=== PATIENT | male | born 1990 | race Asian ===

== ENCOUNTER 2017-07-28 19:19 | Observation (INO) | payer OTHER ==
[~2017-07-28] VITALS: Ht 180.3 cm; Wt 59.4 kg
[~2017-07-28 19:19] MED LIST: FLUT9.9S NOSTRIL; SULF1TAB7 PO
[2017-07-28 19:32] VITALS: BP 118/76; PULSE 82; RESP 17; O2SAT 99
--- NOTE | 2017-07-28 19:42 | ED.REPORT ---
HPI-General Illness Date of Service Jul 28, 2017 ED Provider: Jaylen Locke MD Pt is a 27 year old male with a history of recurrent episodes of epistaxis and thrombocytopenia/pancytopenia, previously seen by Dr. Marquez who presents to the ED complaining of a nosebleed. His nose began bleeding thirty minutes ago and has continued despite the pt plugging his nose with paper. The pt does not take any blood thinners. He has experienced similar symptoms previously. He was apparently supposed to have a CBC done last month though this was never completed. Nursing Notes Stated Complaint: NOSE WONT STOP BLEEDING, LOW PLATELET COUNT Chief Complaint: General Complaint Nursing Notes Reviewed: Yes Allergies: Coded Allergies: Penicillins (Verified Allergy, Severe, sweating and face turns pale, ) Scheduled Fluticasone Propionate (Flonase Allergy Relief) 50 Mcg/Actuation [place].susp 1 SPRAY NOSTRIL BID Sulfamethoxazole/Trimeth 800-160 mg (Bactrim DS) 1 Each Tablet 1 TABLET PO BID General Time Seen by MD: 19:39 Chief Complaint Other (Epistaxis) Hx Obtained From: Patient, Other family... Arrived By: Walk-in Sudden in Onset?: Yes Onset Occurred: 16 - 30 minutes ago Symptom Duration: Since onset Recent Healthcare: Recent doctor visit Similar Sx Previous: Yes Past Medical History Past Medical History Thrombocytopenia Epistaxis Past Surgical History L neck biopsy Smoking History Never Smoker Social History Alcohol Use: Denies alcohol use Ambulatory Status Independent Review of Systems Full Review of Systems Ears / Nose / Throat: Reports: Nose bleeding Respiratory: Denies: Non-productive cough, Shortness of breath Cardiovascular: Denies: Chest pain GI: Denies: Abdominal pain, Nausea, Vomiting Musculoskeletal: Denies: Back pain, Neck pain Skin: Denies Rash Complete sys rev & neg: except as marked. Physical Exam Vital Signs Vital Signs Date Time Temp Pulse Resp B/P Pulse Ox O2 Delivery O2 Flow Rate FiO2 07/28/17 19:32 36.4 82 17 118/76 99 Room Air Initial VS: Reviewed General/Constitutional: Awake, Alert Head / Eyes: Atraumatic, Normocephalic, PERRL, EOMI ENT: Atraumatic, Airway patent, Mucous membranes moist blood present in right nares, no active bleeding oropharynx normal Neck: Atraumatic, Supple, Full range of motion Respiratory / Chest: Atraumatic, Breath sounds NL, Breath sounds = bilat, No respiratory distress Cardiovascular: Heart rate NL, Regular rhythm, Heart sounds NL Abdomen: Atraumatic, Soft, Non-tender Back: Atraumatic, Full range of motion Upper Extremities Upper Extremity / MS: Atraumatic, Full range of motion Lower Extremity / Pelvis / MS: Atraumatic, Full range of motion Skin: Atraumatic, Color NL, No rash, Warm, Dry Neurologic: Oriented X3, Speech NL, No motor deficits, No sensory deficits Psychiatric: Affect NL, Mood NL Interpretation & Diagnostics Lab Results Interpretation Result Diagram: 07/28/172026 Test 07/28/17 20:27 07/28/17 20:28 White Blood Count 5.9th/mm3 (3.8-10.1) Red Blood Count 5.02mil/mm3 (4.40-5.80) Hemoglobin 14.1g/dL (13.8-17.2) Hematocrit 42.0% (41.0-50.0) Mean Corpuscular Volume 84fL (81-100) Mean Corpuscular Hemoglobin 28.1pg (27.0-35.0) Mean Corpuscular Hemoglobin Concent 33.6% (32.0-37.0) Red Cell Distribution Width 15.4% (12.3-15.4) Platelet Count 17bil/L (150-400) Neutrophils (%) (Auto) 79% (40-74) Lymphocytes (%) (Auto) 15% (14-46) Monocytes (%) (Auto) 5% (4-12) Eosinophils (%) (Auto) 1% (0-5) Basophils (%) (Auto) 0% (0-3) Hold Ford Top Tube Received (Received) Re-Eval/Medical Decision Med Decision/Clinical Course Pt is a 27 year old male with a history of recurrent episodes of epistaxis and thrombocytopenia/pancytopenia, previously seen by Dr. Marquez who presents to the ED complaining of a nosebleed. His nose began bleeding thirty minutes ago and has continued despite the pt plugging his nose with paper. The pt does not take any blood thinners. He has experienced similar symptoms previously. He was apparently supposed to have a CBC done last month though this was never completed. Here in the emergency department the patient was afebrile with stable vital signs. Also able to stop his nosebleed by applying firm pressure. Lab for studies were notable as below: CBC unremarkable except platelet count of 17 On 03/12/2017, platelet count was 90 Presentation and workup today was discussed with Dr. Carter hematology oncology. Given that acute drop in his platelets and active bleeding was felt that he should be transfused 2 units of platelets. Patient will be admitted to the medicine service with ongoing transfusion and plan for further evaluation by hematology oncology in the morning. The cause of the patient's pancytopenia remains unclear enterovirus further workup. Patient was discussed with admitting hospitalist and transferred in stable condition. Source of Hx: Old records Time of Eval: 21:17 Patient Status: Condition improved Re-Evaluation/Progress Note: Pt rechecked and lab results are discussed. The diagnosis and plan for admission are discussed. The pt understands and agrees with the plan. All questions are addressed at this time. Consultation #1: Referral / Consult Name: Clyde Lewis MD Consulted With: Collections Clerk Call Returned at: 21:26 Assembly Stock Supervisor: Agrees with eval, Agrees with plan Note: Consulted with Dr. Lewis, hematology, regarding pt's case. Dr. Lewis recommends platelet transfusion and admission. Consultation #2: Referral / Consult Name: Willie Ramos MD Consulted With: Hospitalist Call Returned at: 21:57 Assembly Stock Supervisor: Agrees with eval, Agrees with plan, Accepts admit Note: Spoke with Dr. Ramos, hospitalist, regarding pt's case. Dr. Ramos agrees with the evaluation and agrees to admit the pt. Counseled Regarding: Diagnosis, Lab results, Need for admission Discharge & Departure Primary Impression: Epistaxis Additional Impression: Thrombocytopenia Disposition: ADMITTED TO HOSPITAL Discharge Condition All VS Reviewed: Yes Condition: Stable Referrals: Mt Malik MD [facility] Crit Care Except Billable Proc Time Spent: 75-104 minutes Services Performed: Patient management by me, Time spent at bedside, Reviewing test results, Discussing patient care, Documentation in record, Time with fam/ surrogate Critical Care Notes: Management of severe thrombocytopenia and active bleeding, transfusion of platelets, discussion with hematology/oncology and other consultants. Scribe Attestation Portions of this note were transcribed by Jim Gonzalez. I, Dr. Locke personally performed the history, physical exam and medical decision-making; I reviewed and confirmed the accuracy of the information in the transcribed note. copies to: Mt Malik MD; [facility] Jaylen Locke MD Jul 28, 2017 19:42 JIM GONZALEZ Jul 28, 2017 19:57
[2017-07-28 20:56] LABS: Mean Corpuscular Hemoglobin 28.1 pg (27.0-35.0); Mean Corpuscular Volume 84 fL (81-100)
[2017-07-28 20:59] LABS: BASOPHILS % (AUTO) 0 % (0-3); EOSINOPHILS % (AUTO) 1 % (0-5); MONOCYTES % (AUTO) 5 % (4-12); NEUTROPHILS % (AUTO) 79 % (40-74); Platelet Count 17 bil/L (150-400)
[2017-07-28] MEDS ORDERED: 0.9% Sodium Chloride 250 ML IV STA (21:31)
[2017-07-28] MEDS ORDERED: Alum-Mag Hydrox-Simeth 30 mL Suspension PO PRN ×2 (21:35→22:30)
[2017-07-28] MEDS ORDERED: Ondansetron 2 mg/mL 2 mL Inj IVPUSH PRN ×2 (21:35→22:30)
[2017-07-28] MEDS ORDERED: Polyethylene Glycol (PEG) 17 Gm Powder PO PRN (22:30)
--- NOTE | 2017-07-28 22:44 | PCM.HPMED ---
Subjective Date of Service Jul 28, 2017 Primary Provider: Admitting Physician: Willie Ramos MD Primary Care Physician: Nopwalt Attending Physician: Willie Ramos MD Admit Status: From the Emergency Department Chief Complaint: Nosebleed History of Present Illness: Kourtney Bhardwaj is a 27 -year-old male with a past medical history significant for thrombocytopenia and recurrent nosebleeds presented to the ED for a nosebleed that has been going on for 30 minutes. He has attempted to pack his nose with tissue but it has not staunched the flow. He denies any fever/chills, headache, vision changes, feeling of fatigue or easy bruising. He also denies any overt B symptoms. He has undergone a lengthy work up with Dr. Marquez, at [facility], and his doctor in [place] for his enlarged lymph nodes and thrombocytopenia, all of which has come back negative. He takes DS Bactrim on MWF for prophylaxis but has not had any opportunistic infection. The above history was a combination of records review and utilizing a Mandarin environmental engineer. Review of Systems: Comprehensive review of systems was conducted with the patient and found to be negative except as noted above in HPI. Allergies Coded Allergies: Penicillins (Verified Allergy, Severe, sweating and face turns pale, ) Home Medications Scheduled Fluticasone Propionate (Flonase Allergy Relief) 50 Mcg/Actuation [place].susp 1 SPRAY NOSTRIL BID Sulfamethoxazole/Trimeth 800-160 mg (Bactrim DS) 1 Each Tablet 1 TABLET PO BID - ON MWF only PMH Thrombocytopenia Recurrent epistaxis Surgical History Left neck lymph node biopsy Family History Denies Social History Hx Alcohol Use: No Hx Substance Use: No Hx Tobacco Use: No Smoking Status: Never Smoker Living Arrangement: with Family Exam Vital Signs Vital Sign - Last Date Time Temp Pulse Resp B/P Pulse Ox O2 Delivery O2 Flow Rate FiO2 07/28/17 19:32 36.4 82 17 118/76 99 Room Air Exam General: Age appropriate [place] male in no acute distress, well-developed, well -nourished, appropriately interactive. Speaks in Mandarin only. HEENT: Normocephalic, atraumatic. External ears without defect. Pupils equal, round, and reactive to light and accommodation. Membranes pink and moist. Dried blood in the nares but no active bleeding. Neck: Supple with full range of motion. No jugular venous distension. He does have diffuse cervical lymphadeonpathy which makes his neck quit enlarged. Cardiovascular: Regular rate and rhythm with no murmurs, rubs, or gallops appreciated Pulmonary: Clear to auscultation bilaterally with no crackles, wheezes, or rhonchi. Normal respiratory effort with no use of accessory muscles. Abdomen: Bowel tones present. Soft, nontender, nondistended. No hepatosplenomegaly or masses appreciated. Extremities: No clubbing, cyanosis, edema appreciated. Skin: Normal temperature, turgor, and texture; no rash, ulcers, or subcutaneous nodules appreciated. Neurological: Cranial nerves grossly intact. Normal muscle strength, tone, and bulk. Reflexes, coordination, and sensory function within normal limits. No known gait impairment. Psychiatric: Normal mood and affect. Alert and oriented to person, place, and time. Lab and Diagnostics Result Diagram: 07/28/172026 Assessment & Plan Kourtney Bhardwaj is a 27 -year-old male with a past medical history significant for thrombocytopenia and recurrent nosebleeds presented to the ED for a nosebleed that has been going on for 30 minutes despite packing attempts. Epistaxis, present on admission. Acute. Ongoing. - likely due to thrombocytopenia as below - Nosebleed stopped in ED, no active bleeding on admit - Platelet count 17, down from 90 on 03/2017 - Monitor and staunch all further bleeding - Treat main cause, thrombocytopenia, as below Thrombocytopenia, present on admission. Chronic. Ongoing. - Patient has been worked up extensively via Heme-Onc here at [facility], in [place] without exact diagnosis - CBC significant for platelet count of 17 - Dr. Lewis consulted from ED, recommended admit and platelet transfusion - 2 units platelets ordered, transfusing - Repeat CBC in AM His mother did not have his current medication list; she will bring it in either tonight or tomorrow morning. Day team to complete med rec at that time. PRN Medications - Acetaminophen as needed for mild pain/fever/headache - Bowel regimen as needed - Antiemetic as needed Patient status: Patient is admitted under observation status with expected length of stay less than 2 midnights due to severity of presenting symptoms, risk of adverse event, and complexity of treatment plan. VTE Prophylaxis Indicated: Contraindicated (nosebleed; platelets 17) VTE Mechanical Devices: Intermittant Pneumatic CD Resuscitation Status: CPR: Attempt Resuscitation Attending Statement The patient was seen and examined together with Dr. Avitia on 07/28 and I agree with the history, exam and plan as outlined in the note above. Fitz Avitia DO Jul 28, 2017 22:44 Willie Ramos MD Jul 29, 2017 01:47
[2017-07-28 22:47] VITALS: BP 115/63; PULSE 62; O2SAT 98
[2017-07-28 22:48] VITALS: BP 115/63; PULSE 62; O2SAT 98
[2017-07-28 22:59] VITALS: BP 123/77; PULSE 66; RESP 16; O2SAT 98
[2017-07-28 23:48] VITALS: BP 123/77; PULSE 66; RESP 16
[2017-07-29] VITALS (8 sets, daily range): BP systolic 110–131; BP diastolic 55–83; PULSE 55–68; RESP 15–20; O2SAT 96–100
[2017-07-29] MEDS ORDERED: PRD5T PO (00:34)
--- NOTE | 2017-07-29 00:41 | NUR ---
Admission Note Pt admitted to [facility] from ER on stretcher, alert and orientedx3, denies any pain, SOB, nausea, vomiting, fever or chills, or headache. Nose bleeding resolved, denies bleeding gums,hemoptysis,or black tarry stool. VSS, BP 123/77 HR 66, afebrile. Lung sounds clear, HR 66, regular, no murmur, abdomen soft, non tender, BT active. Some scattered petechia at bilateral arms, a bruise at right upper arm and 1 small bruise at right daly. 1st /2 units of Platelet is running currently, no transfusion reaction noted. Pt oriented to call light, low platelet precaution instructed to pt: avoid strain to prevent bleeding, and monitoring s/s of bleeding. Care ongoing. Pt is Mandarin speaking, under the care of the primary RN Janine who is a licensed mandarin manager film.
[2017-07-29 05:51] LABS: Mean Corpuscular Volume 83.9 fL (81-100); NEUTROPHILS % (AUTO) 75.5 % (40-74); Platelet Count 61 bil/L (150-400)
[2017-07-29 05:52] LABS: BASOPHILS % (AUTO) 0.1 % (0-3); EOSINOPHILS % (AUTO) 0.1 % (0-5); MONOCYTES % (AUTO) 8.3 % (4-12)
[2017-07-29 08:26] LABS: Magnesium 2.1 mg/dL (1.6-2.6)
[2017-07-29 08:46] LABS: INR 0.9 ratio
--- NOTE | 2017-07-29 08:52 | NUR ---
AM Translation Video cold meat cook used, state federal relations deputy director # [id number] in room at the same time. Pt denied pain. Stated to have had a BM on 07/28. Dr Lewis in and seen pt in AM, verbally told NOC RN that pt is ready for d/c and to f/u with Oncologist next week. Pt aware of plan. Will continue to monitor.
--- NOTE | 2017-07-29 09:00 | PCM.DIMED ---
Discharge Instructions Date of Service Jul 29, 2017 Dates of Hospitalization Jul 28, 2017 at 22:18 Discharge Diagnosis Discharge Diagnosis # Acute epistaxis, present on admission. Resolved - likely due to thrombocytopenia # Acute on chronic thrombocytopenia, present on admission. - Post 2 units platelet transfusion - Platelet 17 on admission and 61 on day of discharge Medication Instructions Additional med instructions Resume your home medications as before Diet Discharge Diet: No restrictions Activity Discharge Activity: No restrictions Call your provider Call your provider for: Fever or Chills, Shortness of breath, Bleeding Patient Instructions Patient Instructions Seek immediate medical attention if any new or worsening signs or symptoms occur. Follow-up plan 1. Followup with hematology/oncology (Dr. Marquez) on 08/01/17 at 9:[address] [facility] [address], [address] [place] [address] Follow-up Provider: Sangeeta Marquez MD Follow-up with PCP in: Other (08/01/17 at 9:20 AM) Kev Nassar Jul 29, 2017 09:00
--- NOTE | 2017-07-29 09:02 | PROG NOTE ---
[address] [address] PROGRESS NOTE PATIENT: ERNETTA LEON : 1990 MR#: [id number] ADMIT: 07/28/2017 JOB ID: [id number] DATE: 07/29/2017 SUBJECTIVE: The patient is a 29-year-old, Bangladeshi gentleman, who was hospitalized with significant epistaxis and platelets of 17,000. He has been followed by my colleague, Dr. Sangeeta Marquez, for evaluation of a 3-year history of moderate thrombocytopenia, generalized lymphadenopathy, mild hepatosplenomegaly, and leukopenia. He has severe persistent CD4 lymphocytopenia, monitored about once a month in the [facility], although recently he was in [facility], where he reportedly had a bone marrow study. He has also had extensive evaluation at [facility], where testing for autoimmune lymphoproliferative syndrome, HIV, CMV, and his reversed CD4/CD8 ratio has been evaluated. They have recommended continued monitoring and prophylactic Bactrim. He is very comfortable this morning. No acute concerns. No further epistaxis. OBJECTIVE: Vitals: T 37.1, P 67, R 20, BP 119/69, O2 saturation 98% on room air. HEENT: Conjunctivae pink. Mucous membranes moist. Chest: Clear. Cardiac exam: Regular. Abdomen: Soft. Normoactive. I did not appreciate his splenomegaly. Extremities: No edema. 2+ distal pulses. A few scattered petechiae. LABORATORIES: WBC 7.0, hemoglobin 13.4, hematocrit 40.2%, MCV 84, platelets 61,000. ASSESSMENT AND PLAN: 1. Thrombocytopenia with epistaxis: Resolved. Platelets have improved from 17,000 at admission to the current level of 61,000 after transfusion with 2 units platelets overnight. He is clinically stable. If there are no other indications for hospitalization, suggest that he be discharged by the hospitalist team, and scheduled for followup with Dr. Marquez in the [facility] in 1-2 weeks with repeat CBC, differential, and platelets. 2. Unidentified syndrome of immune dysregulation: The patient has severe persistent CD4 lymphocytopenia with a reversal of CD8/CD4 ratio. Human immunodeficiency virus (HIV) has been ruled out, as have other viral illnesses. Two excisional lymph node biopsies were negative for lymphoma. He is on infection prophylaxis with Bactrim, which could potentially have an influence on his other hematologic parameters. Outside studies from [facility] were not available during this hospitalization, but could be reviewed with Dr. Marquez in the future. CC: Derrell Solorio MD, [facility] Fitz Avitia DO
--- NOTE | 2017-07-29 09:04 | PCM.DC.MED ---
Discharge Summary Date of Service Jul 29, 2017 Dates of Hospitalization Date of Hospital Admission Jul 28, 2017 at 22:18 Date of Discharge: Jul 29, 2017 Providers: Admitting Physician: Willie Ramos MD Primary Care Physician: Nopwalt Attending Physician: Kev Nassar Diagnosis at Time of Discharge Diagnosis at Time of Discharge # Acute epistaxis, present on admission. Resolved - likely due to thrombocytopenia # Acute on chronic thrombocytopenia, present on admission. - Post 2 units platelet transfusion - Platelet 17 on admission and 61 on day of discharge Consultations 1. Oncology (Dr. Lewis) Brief History As noted in H&P by Dr. Avitia: Kourtney Bhardwaj is a 27 -year-old male with a past medical history significant for thrombocytopenia and recurrent nosebleeds presented to the ED for a nosebleed that has been going on for 30 minutes. He has attempted to pack his nose with tissue but it has not staunched the flow. He denies any fever/chills, headache, vision changes, feeling of fatigue or easy bruising. He also denies any overt B symptoms. He has undergone a lengthy work up with Dr. Marquez, at [facility], and his doctor in [place] for his enlarged lymph nodes and thrombocytopenia, all of which has come back negative. He takes DS Bactrim on MWF for prophylaxis but has not had any opportunistic infection. The above history was a combination of records review and utilizing a [employer] bilingual customer service specialist. Hospital Course Epistaxis, present on admission. Acute. Resolved - likely due to thrombocytopenia as below - Nosebleed stopped in ED, no active bleeding on admit - Platelet count 17 on admission, down from 90 on 03/2017 - Treated main cause, thrombocytopenia, as below Thrombocytopenia, present on admission. Chronic. - Patient has been worked up extensively via Heme-Onc here at [facility], in [place] without exact diagnosis - Dr. Lewis consulted from ED, recommended admit and platelet transfusion - 2 units platelets transfused and platelet count improved to 61 by day of discharge - Per nursing report patient was seen by Dr. Lewis on morning of 07/29/17 who cleared the patient for discharge home with recommendations for followup with Dr. Marquez later this week. - Appointment setup for patient following up with Dr. Marquez (as noted below) By day of discharge patient denies any new issues/complaints and eager to go home Exam Vital Signs (Last) Date Time Temp Pulse Resp B/P Pulse Ox O2 Delivery O2 Flow Rate FiO2 07/29/17 08:23 37.1 67 20 119/69 98 Room Air Exam HEENT: nares clear without any bleeding Lungs: CTA bilat CV: RRR Test 07/28/17 20:28 07/29/17 05:30 07/29/17 07:50 Hold Ford Top Tube Received (Received) White Blood Count 7.0th/mm3 (3.8-10.1) Red Blood Count 4.79mil/mm3 (4.40-5.80) Hemoglobin 13.4g/dL (13.8-17.2) Hematocrit 40.2% (41.0-50.0) Mean Corpuscular Volume 83.9fL (81-100) Mean Corpuscular Hemoglobin 28.0pg (27.0-35.0) Mean Corpuscular Hemoglobin Concent 33.3% (32.0-37.0) Red Cell Distribution Width 15.2% (12.3-15.4) Platelet Count 61bil/L (150-400) Neutrophils (%) (Auto) 75.5% (40-74) Lymphocytes (%) (Auto) 15.3% (14-46) Monocytes (%) (Auto) 8.3% (4-12) Eosinophils (%) (Auto) 0.1% (0-5) Basophils (%) (Auto) 0.1% (0-3) Band Neutrophils % 1% (1-5) Prothrombin Time 9.6sec (8.1-12.5) Prothromb Time International Ratio 0.90ratio Activated Partial Thromboplast Time 26.2sec (22.8-33.0) Sodium Level 138mEq/L (134-144) Potassium Level 3.8mEq/L (3.5-5.2) Chloride Level 102mEq/L (97-108) Carbon Dioxide Level 21mmol/L (18-29) Blood Urea Nitrogen 18mg/dL (6-20) Creatinine 0.76mg/dL (0.76-1.27) Estimat Glomerular Filtration Rate 133mL/min (>59) Glucose Level 151mg/dL (60-99) Calcium Level 8.8mg/dL (8.5-10.1) Magnesium Level 2.1mg/dL (1.6-2.6) Total Bilirubin 0.4mg/dL (0.0-1.2) Aspartate Amino Transf (AST/SGOT) 11U/L (0-50) Alanine Aminotransferase (ALT/SGPT) 14U/L (0-44) Alkaline Phosphatase 60U/L (25-150) Total Protein 7.1g/dL (6.4-8.4) Albumin 3.8g/dL (3.4-5.0) Discharge Medications Discharge Medications Prednisone (PredniSONE) 5 Mg Tab 15 MG PO TID (Reported) Additional med instructions Resume your home medications as before Followup Plan Disposition: Home Follow-up plan 1. Followup with hematology/oncology (Dr. Marquez) on 08/01/17 at 9:20 AM [facility] [address], [address] [place] [address] Discharge Diet: No restrictions Discharge Activity: No restrictions Patient Instructions Seek immediate medical attention if any new or worsening signs or symptoms occur. Follow-up Provider: Sangeeta Marquez MD Follow-up with PCP in: Other (08/01/17 at 9:20 AM) Time spent 30 min copies to: Sangeeta Marquez MD, Masoud Jul 29, 2017 09:04
--- NOTE | 2017-07-29 10:23 | NUR ---
Discharge Pt d/c home with his mom at 1020. Pt denied pain. IV d/cd. VSS. Discharge info discussed w/o translation, per pts request. Stated to understand the importance of f/u with on .
--- NOTE | 2017-07-29 10:37 | NUR ---
Social Work-screening/ discharge: Data:EMR Reviewed. Pt is a 27 y/o male who was admitted on 07/28/17 for epistasis per H&P. Pt is medically stable for discharge. Pt resides at home with family and has been up independent in his room. No discharge needs identified. All updated and agreeable to plan. Assessment:Pt who is independent at baseline. Plan:Pt to discharge home today via POV. No discharge needs identified. All updated and agreeable to plan. GAIL Barrios
== END 2017-07-29 10:19 | disposition home or self-care (01) ==
LOC: SED 19:19 → MPC 22:18 → INTOOBSV 22:18
PROVIDERS: ADMIT Hospitalist; ATTEND Internal Medicine
DX: D69.6 Thrombocytopenia, unspecified (principal); R04.0 Epistaxis; R59.1 Generalized enlarged lymph nodes; D72.810 Lymphocytopenia

== ENCOUNTER → 2017-08-23 | Day surgery (SDC) | payer OTHER ==
[~2017-08-23] VITALS: Ht 180.3 cm; Wt 93.4 kg
[~2017-08-23] MED LIST changes: +0.9% Sodium Chloride 1,000 ML IV ONE; -FLUT9.9S NOSTRIL; +Lidocaine PF 2% 10 mL Inj MUC_MEMBRM ONE; +Lidocaine PF 2% 10 mL Inj MUC_MEMBRM PRN; +Lidocaine Topical 2% 30 mL Jelly TOPICAL ONE; +Ondansetron 2 mg/mL 2 mL Inj ONE; +fentaNYL-PF 50 mCg/mL 2 mL Inj IVPUSH PRN
[2017-08-23 10:47] VITALS: BP 111/76; PULSE 96; O2SAT 96
[2017-08-23 11:53] VITALS: BP 123/66; PULSE 86; RESP 20; O2SAT 100
[2017-08-23 12:03] VITALS: BP 115/69; PULSE 91; RESP 20; O2SAT 95
[2017-08-23 12:13] VITALS: BP 107/60; PULSE 86; RESP 16; O2SAT 94
[2017-08-23 12:23] VITALS: BP 106/63; PULSE 87; RESP 16; O2SAT 95
--- NOTE | 2017-08-23 14:37 | ENDO ---
[address] [address] ENDOSCOPY PROCEDURE PATIENT: RENETTA LEON : 1990 MR#: [id number] ADMIT: 08/23/2017 JOB ID: [id number] DATE OF SERVICE: 08/23/2017 PROCEDURE: Bronchoscopy. PERFORMED BY: Susy Alanis MD, Pulmonary Medicine. INDICATION: Pneumonia, immunocompromised patient, fever. Informed consent was obtained from the patient in the presence of an freelance interpreter/translator and his mother. Risks and benefits of the procedure were discussed in detail. DESCRIPTION: The patient was asked to gargle lidocaine. Additional lidocaine was administered via atomizer to the oropharynx. IV sedation was administered and scope was passed through the mouth. Epiglottis was visualized and normal in appearance. Vocal cords were subsequently visualized and normal in appearance. We continued to administer topical lidocaine in this area. The scope was then passed through the vocal cords into the trachea. Trachea and bilateral airways were all evaluated. All the airways were patent, but the mucosa was slightly more erythematous throughout. There were no focal lesions/hemorrhages or abnormal secretions. We proceeded with a bronchoalveolar lavage in the right middle lobe--120 cc of saline was administered with about 40-50 cc of return of clear fluid. We then did a bronchoalveolar lavage in the lingula on the left side. Again 120 cc of fluid was administered with 50-60 cc of clear fluid returned. Patient tolerated the procedure well. FINDINGS: Normal airways with the exception of some mucosal erythema. SAMPLES: BAL, right middle lobe and lingula, were pooled and sent for bacterial, fungal, AFB, Legionella cultures; also viral PCR, viral cultures, CMV, HSV. I also requested the samples to be sent out to the [facility] for fungal and AFB PCRs. Cytology was also requested on the fluid. COMPLICATIONS: None. MEDICATIONS: Lidocaine 16 cc, fentanyl 100 mcg. Midazolam 3.5 mg. A total of 240 cc of saline administered and 110 cc return obtained. I spoke to his mother after the procedure. They have followup with Dr. Ron Sandhu in Infectious Disease next Saturday. I will speak with Dr. Sandhu and ask him to discuss bronch results with them because of ease of communication with freelance interpreter/translator being present. Mom was anxious to have the patient started on medications for his fever, but I encouraged her to wait for results so we treat him with appropriate medications. If he becomes short of breath, unstable over the weekend, I told them to come into the emergency department. CC: Patient's primary doctor
--- NOTE | 2017-08-27 15:39 | PATH ---
SURGICAL PATHOLOGY Attending Physician:Susy Alanis MD CASE STATUS: Signed Out PATIENT NAME: RENETTA LEON PID: [id number] : 1990 DATE COLLECTED:08/23/2017 00:00 SPECIMEN: Bronchial Washings CLINICAL HISTORY: Bronchial Washings ICD-10 code not given FINAL DIAGNOSIS: BRONCHIAL WASHINGS: NEGATIVE FOR MALIGNANT CELLS. [id number] NOTE: The slides show scattered lymphocytes and alveolar macrophages. No malignant cells are identified. Features suggestive of pneumocystis are not identified. GROSS DESCRIPTION: Received fresh on 08/26/2017 is approximately 40 cc of clear pink fluid. Prepared are one cell block and one ThinPrep slide. Vo ICD-9 CODES: CPT CODES: 1: 36603, 13307 Electronically Signed Out Nazia Hummel MD [facility] [address], [place] [address] Technical component performed at [facility], [facility] [address], [address]
== END | disposition home or self-care (01) ==
LOC: END 10:18
PROVIDERS: ATTEND Internal Medicine Critical Care Medicine
DX: J18.9 Pneumonia, unspecified organism (principal); D84.9 Immunodeficiency, unspecified; R50.9 Fever, unspecified; K31.89 Other diseases of stomach and duodenum; R59.1 Generalized enlarged lymph nodes; D69.6 Thrombocytopenia, unspecified
CPT/HCPCS: 31624; 87015; 87070; 87101; 87205; 87206; 87254; 87255; 87278; 87281; 87290; 87556; 87633; 87899; 88112; 88305; 99152; 99153; J2250; J2405; J3010; J7030